=== PATIENT | male | born 1960 | race Caucasian/White ===

== ENCOUNTER 2022-03-18 17:26 | Emergency (ER) | payer OTHER ==
[~2022-03-18] VITALS: Ht 172.7 cm; Wt 85.3 kg
[2022-03-18 17:38] VITALS: BP 159/90
--- NOTE | 2022-03-18 17:40 | NUR ---
PT RECEIVD, CARE ASSUMED. PT PRESENTS SELF TO ER FOR GEN BODY WEAKNESS AND DIZZINESS EPISODE TODAY AT 12. PT DENIES ANY DISTRESS AT THIS TIME. PT STATES HE'S HERE FOR TESTS. CONNECTED TO TELE MONITOR. AWAITING TO BE SEEN BY
[2022-03-18 18:33] LABS: BASOPHILS % (AUTO) 0.6 % (0.0-2.0); EOSINOPHILS # (AUTO) 0.1 K/uL (0-0.4); EOSINOPHILS % (AUTO) 0.8 % (0.0-4.0); HEMOGLOBIN 7.7 g/dL (12.0-18.0); LYMPHOCYTES # (AUTO) 1.3 K/uL (2.0-11.5); LYMPHOCYTES % (AUTO) 21.1 % (20.5-51.1); MEAN CORPUSCULAR HEMOGLOBIN 30 pg (27-31); MEAN CORPUSCULAR HGB CONC 33 g/dL (33-37); MEAN CORPUSCULAR VOLUME 91.3 fL (80-94); MONOCYTES # (AUTO) 0.5 K/uL (0.8-1.0); MONOCYTES % (AUTO) 7.6 % (1.7-9.3); NEUTROPHILS # (AUTO) 4.3 K/uL (1.8-7.7); NEUTROPHILS % (AUTO) 69.9 % (42.2-75.2); PLATELET COUNT (AUTO) 239 K/uL (140-450); RED BLOOD CELL COUNT(AUTO) 2.52 MIL/uL (4.20-6.10); RED CELL DISTRIBUTION WIDTH 14.7 % (11.6-13.7); WHITE BLOOD COUNT (AUTO) 6.1 K/uL (4.8-10.8)
[2022-03-18 19:19] LABS: ALBUMIN 3.9 g/dL (3.4-5.0); ANION GAP 22.5 (8-16); ASPARTATE AMINOTRANSFERASE 20 U/L (15-37); CARBON DIOXIDE 17.2 mmol/L (21-32); CHLORIDE 106 mmol/L (98-107); GFR ARICAN-AMERICAN 14 mL/min (>90); GLUCOSE 91 mg/dL (74-106); SODIUM SERUM 139 mmol/L (136-145); TOTAL BILIRUBIN 0.3 mg/dL (0.0-1.0); UREA NITROGEN, BLOOD 58 mg/dL (7-18)
[2022-03-18 19:22] LABS: CREATININE 5.5 mg/dL (0.6-1.3); POTASSIUM 6.7 mmol/L (3.5-5.1)
--- NOTE | 2022-03-18 19:35 | NUR ---
DR. SAHU AT BEDSIDE DISCUSSING RESULTS
--- NOTE | 2022-03-18 20:00 | NUR ---
I WANTED TO GET THE IV ACCESS BUT PT IS REFUSING TO GET IT , I HAVE EXPLAINED THE PT THE PURPOSE OF THE IV ACCESS FOR AND I TRIED TO EXPLAINE THE CRITICAL VALUE THAT NEEDS TO BE ADDRESSED WELL. PT WANTED TO HAVE THE DR EXPLAINED.
--- NOTE | 2022-03-18 20:15 | NUR ---
PT CALLED THE AND HE REFUSED THE WHOLE TREATMENT IN HERE. PT REQUESTED AMA FORM AND HE SIGNED.
[2022-03-18 20:41] VITALS: BP 159/90
--- NOTE | 2022-03-18 20:43 | NUR ---
Patient does not wish to proceed with medical care recommended by DR. SAHU. Patient given information related to possible complications, up to and including , which could occur as a result of leaving hospital at this time. Patient verbalizes understanding of risks involved leaving against medical advice. Patient has signed AMA form. PT LEFT WITH HIS BELONGIGNS
== END 2022-03-18 20:25 | disposition left against medical advice (07) ==
LOC: MED 17:26
DX: N17.9 Acute kidney failure, unspecified (principal); D64.9 Anemia, unspecified; E87.5 Hyperkalemia; I10 Essential (primary) hypertension; Z79.899 Other long term (current) drug therapy; Z53.29 Procedure and treatment not carried out because of patient's decision for other reasons
CPT/HCPCS: 36415; 70450; 71045; 80053; 84484; 85025; 93005; 99285; Q0092